=== PATIENT | male | born 1985 | race Hispanic/Latino ===

== ENCOUNTER 2021-12-02 18:21 | Emergency (ER) | payer SELFPAY ==
[2021-12-02] MEDS ORDERED: KETOROLAC 30 MG/ML INJ ONE (18:58)
[2021-12-02] MEDS ORDERED: HYDROCODONE/APAP 10/325 TAB ONE (18:58)
--- NOTE | 2021-12-02 19:18 | ER ---
Nurse's Notes [facility] Name: Jose De Jesus Hudson Age: 36 yrs Sex: Male : 1985 Arrival Date: 12/02/2021 Time: 18:23 Bed 14 Private MD: Diagnosis: Recurrent dislocation, left shoulder-reduced Presentation: 12/02 18:39 Chief complaint: Patient states: "I was lifting and popped my shoulder out of place.". ab2 Coronavirus screen: Vaccine status: Patient reports receiving the 2nd dose of the covid vaccine. Client denies travel out of the [place] in the last 14 days. At this time, the client does not indicate any symptoms associated with coronavirus-19. Ebola Screen: Patient negative for fever greater than or equal to 101.5 degrees Fahrenheit, and additional compatible Ebola Virus Disease symptoms Patient denies exposure to infectious person. Patient denies travel to an Ebola-affected area in the 21 days before illness onset. No symptoms or risks identified at this time. Initial Sepsis Screen: Does the patient meet any 2 criteria? No. Patient's initial sepsis screen is negative. Does the patient have a suspected source of infection? No. Patient's initial sepsis screen is negative. Risk Assessment: Do you want to hurt yourself or someone else? Patient reports no desire to harm self or others. Onset of symptoms is unknown. 18:39 Method Of Arrival: Ambulatory ab2 18:39 Acuity: ESTRELLA 4 ab2 Triage Assessment: 18:41 General: Appears in no apparent distress. uncomfortable, Behavior is calm, cooperative, ab2 appropriate for age. Pain: Complains of pain in left arm Pain currently is 10 out of 10 on a pain scale. Neuro: Level of Consciousness is awake, alert, obeys commands, Oriented to person, place, time, situation, Appropriate for age. Musculoskeletal: Pt shoulder out of place Reports pain in left arm. Historical: - Allergies: 18:40 No Known Allergies; ab2 - PMHx: 18:40 None; ab2 - PSHx: 18:40 None; ab2 - Immunization history:: Adult Immunizations up to date. - Social history:: Smoking status: Patient reports the use of cigarette tobacco products, smokes one pack cigarettes per day. - Family history:: not pertinent. Screenin:33 Abuse screen: Denies threats or abuse. Denies injuries from another. Nutritional kisha screening: No deficits noted. Tuberculosis screening: No symptoms or risk factors identified. Fall Risk None identified. Assessment: 19:31 Reassessment: Patient appears in no apparent distress at this time. No changes from kisha previously documented assessment. The pt's left shoulder has been reduced and we were awaiting x-ray report. The results were negative and the immobilizer was placed. The pt tolerated this well and denies any pain at this time. Vital Signs: 18:39 BP 122 / 97; Pulse 78; Resp 17; Temp 98.3; Pulse Ox 100% on R/A; Weight 72.57 kg; ab2 Height 5 ft. 4 in. (162.56 cm); Pain 10/10; 19:32 BP 128 / 95; Pulse 78; Resp 16; Pulse Ox 100% on R/A; Pain 0/10; kisha 18:39 Body Mass Index 27.46 (72.57 kg, 162.56 cm) ab2 ED Course: 18:23 Patient arrived in ED. mr 18:30 León Sandoval MD is Attending Physician. willie 18:40 Triage completed. ab2 18:41 Arm band placed on right wrist. ab2 18:54 Shoulder Left (2 View) XRAY In Process Unspecified. EDMS 19:17 Turner Willis MD is Referral Physician. willie 19:30 Reshma Gaitan, PABLO is Primary Nurse. kisha 19:33 No provider procedures requiring assistance completed. kisha 19:34 Patient has correct armband on for positive identification. Bed in low position. Call kisha light in reach. Adult w/ patient. 19:34 Patient did not have IV access during this emergency room visit. kisha Administered Medications: 19:00 Drug: [place] (HYDROcodone-acetaminophen) 10 mg-325 mg 1 tabs Route: PO; ww 19:00 Drug: Ketorolac 60 mg Route: IM; Site: right gluteus; ww Outcome: 19:17 Discharge ordered by . willie 19:34 Condition: stable kisha 19:34 Discharge instructions given to patient, Instructed on discharge instructions, follow kisha up and referral plans. medication usage, Demonstrated understanding of instructions, follow-up care, medications, Prescriptions given X 2. 19:34 Discharged to home ambulatory. kisha 19:36 Patient left the ED. kisha Signatures: Dispatcher [employer] León Webb MD MD cha Rivera [facility] mr Reshma Gaitan, RN Adriana Soto RN RN Darnell Sánchez
--- NOTE | 2021-12-02 19:18 | EDPHYS ---
Physician Documentation [facility] Name: Jose De Jesus Hudson Age: 36 yrs Sex: Male : 1985 Arrival Date: 12/02/2021 Time: 18:23 Bed 14 Private MD: GEOFF Physician León Sandoval HPI: 12/02 19:09 This 36 yrs old Male presents to ER via Ambulatory with complaints of Shoulder willie Dislocated. 19:09 The patient or guardian complains of decreased range of motion, pain. left shoulder. willie Context: The problem was sustained at home, resulted from lifting or carrying, The patient experiences decreased range of motion, The patient notes a deformity. Onset: The symptoms/episode began/occurred today. Modifying factors: the symptoms are alleviated by remaining still, shoulder immobilizer. Associated signs and symptoms: The patient has no apparent associated signs or symptoms. Severity of symptoms: At their worst the symptoms were moderate, in the emergency department the symptoms are unchanged. The patient has experienced similar episodes in the past, a few times. Historical: - Allergies: 18:40 No Known Allergies; ab2 - PMHx: 18:40 None; ab2 - PSHx: 18:40 None; ab2 - Immunization history:: Adult Immunizations up to date. - Social history:: Smoking status: Patient reports the use of cigarette tobacco products, smokes one pack cigarettes per day. - Family history:: not pertinent. ROS: 19:09 Constitutional: Negative for fever, chills, and weight loss, Eyes: Negative for injury, willie pain, redness, and discharge, ENT: Negative for injury, pain, and discharge, Neck: Negative for injury, pain, and swelling, Cardiovascular: Negative for chest pain, palpitations, and edema, Respiratory: Negative for shortness of breath, cough, wheezing, and pleuritic chest pain, Abdomen/GI: Negative for abdominal pain, nausea, vomiting, diarrhea, and constipation, Back: Negative for injury and pain, : Negative for injury, bleeding, discharge, and swelling, Skin: Negative for injury, rash, and discoloration, Neuro: Negative for headache, weakness, numbness, tingling, and seizure, Psych: Negative for depression, anxiety, suicide ideation, homicidal ideation, and hallucinations, Allergy/Immunology: Negative for hives, rash, and allergies, Endocrine: Negative for neck swelling, polydipsia, polyuria, polyphagia, and marked weight changes, Hematologic/Lymphatic: Negative for swollen nodes, abnormal bleeding, and unusual bruising. 19:09 MS/extremity: Positive for decreased range of motion, pain, swelling, tenderness, of the anterior aspect of left shoulder and posterior aspect of left shoulder. Exam: 19:09 Constitutional: This is a well developed, well nourished patient who is awake, alert, willie and in no acute distress. Head/Face: Normocephalic, atraumatic. Eyes: Pupils equal round and reactive to light, extra-ocular motions intact. Lids and lashes normal. Conjunctiva and sclera are non-icteric and not injected. Cornea within normal limits. Periorbital areas with no swelling, redness, or edema. ENT: Nares patent. No nasal discharge, no septal abnormalities noted. Tympanic membranes are normal and external auditory canals are clear. Oropharynx with no redness, swelling, or masses, exudates, or evidence of obstruction, uvula midline. Mucous membranes moist. Neck: Trachea midline, no thyromegaly or masses palpated, and no cervical lymphadenopathy. Supple, full range of motion without nuchal rigidity, or vertebral point tenderness. No Meningismus. Chest/axilla: Normal chest wall appearance and motion. Nontender with no deformity. No lesions are appreciated. Cardiovascular: Regular rate and rhythm with a normal S1 and S2. No gallops, murmurs, or rubs. Normal PMI, no JVD. No pulse deficits. Respiratory: Lungs have equal breath sounds bilaterally, clear to auscultation and percussion. No rales, rhonchi or wheezes noted. No increased work of breathing, no retractions or nasal flaring. Abdomen/GI: Soft, non-tender, with normal bowel sounds. No distension or tympany. No guarding or rebound. No evidence of tenderness throughout. Back: No spinal tenderness. No costovertebral tenderness. Full range of motion. Male : Normal genitalia with no discharge or lesions. Skin: Warm, dry with normal turgor. Normal color with no rashes, no lesions, and no evidence of cellulitis. Neuro: Awake and alert, GCS 15, oriented to person, place, time, and situation. Cranial nerves II-XII grossly intact. Motor strength 5/5 in all extremities. Sensory grossly intact. Cerebellar exam normal. Normal gait. Psych: Awake, alert, with orientation to person, place and time. Behavior, mood, and affect are within normal limits. 19:09 Musculoskeletal/extremity: ROM: limited active range of motion, limited passive range of motion, Circulation is intact in all extremities. Sensation intact. Compartment Syndrome exam of affected extremity: is normal. Joints: All joints are normal except the left shoulder displays deformity, dislocation, DVT Exam: no swelling, negative Homans' sign noted on exam, no appreciated bluish discoloration, no erythema, no increased warmth, pain, tenderness. Vital Signs: 18:39 BP 122 / 97; Pulse 78; Resp 17; Temp 98.3; Pulse Ox 100% on R/A; Weight 72.57 kg; ab2 Height 5 ft. 4 in. (162.56 cm); Pain 10/10; 19:32 BP 128 / 95; Pulse 78; Resp 16; Pulse Ox 100% on R/A; Pain 0/10; kisha 18:39 Body Mass Index 27.46 (72.57 kg, 162.56 cm) ab2 Procedures: 19:16 Reduction: of the left shoulder, using traction, manipulation, Immobilized with [facility] shoulder immobilizer. Patient tolerated well. Post reduction film - reveals normal alignment. MDM: 18:30 Patient medically screened. willie 19:13 Differential diagnosis: Anterior dislocation without fracture, Posterior dislocation willie without fracture, glenoid fracture, DJD, tendonitis. Data reviewed: vital signs, nurses notes, radiologic studies, plain films. Data interpreted: school lunch monitor: not applicable for this patient encounter. rate is 78 beats/min, rhythm is regular, Pulse oximetry: on room air is 100 %. Test interpretation: by ED physician or midlevel provider: plain radiologic studies. Counseling: I had a detailed discussion with the patient and/or guardian regarding: the historical points, exam findings, and any diagnostic results supporting the discharge/admit diagnosis, lab results, radiology results, the need for outpatient follow up, for definitive care, a orthopedic surgeon. 12/02 18:37 Order name: Shoulder Left (2 View) XRAY [facility] 12/02 18:37 Order name: Shoulder Immobilizer; Complete Time: 19:33 willie Administered Medications: 19:00 Drug: [place] (HYDROcodone-acetaminophen) 10 mg-325 mg 1 tabs Route: PO; ww 19:00 Drug: Ketorolac 60 mg Route: IM; Site: right gluteus; ww Disposition Summary: 12/02/21 19:17 Discharge Ordered Location: Home willie Problem: new willie Symptoms: have improved willie Condition: Stable willie Diagnosis - Recurrent dislocation, left shoulder - reduced willie Followup: willie - With: Private Physician - When: 2 - 3 days - Reason: Recheck today's complaints, Continuance of care, Re-evaluation by your physician Followup: willie - With: Turner Willis MD - When: 2 - 3 days - Reason: Recheck today's complaints, Re-evaluation by your physician Discharge Instructions: - Discharge Summary Sheet willie - Shoulder Dislocation willie - Shoulder Dislocation, [id number] willie - Recurrent Shoulder Laxity and Instability willie - Traumatic Shoulder Instability [facility]hab[facility] willie Forms: - Medication Reconciliation Form willie - Thank You Letter willie - Antibiotic Education willie - Prescription Opioid Use [facility] Prescriptions: - Motrin IB 200 mg Oral Tablet - take 3 tablet by ORAL route every 6 hours As needed as needed with food; 45 willie tablet; Refills: 0, Product Selection Permitted - Tylenol-Codeine #3 300 mg-30 mg Oral - take 2 tablet by ORAL route every 6 hours; 24 tablet; Refills: 0, Product willie Selection Permitted Signatures: Dispatcher [employer] León Webb MD MD cha Wood, Whitney RN RN Darnell Sánchez
--- NOTE | 2021-12-02 19:42 | RAD REPORT ---
EXAM DESCRIPTION: RAD - Shoulder Left 2 View - 12/02/2021 6:52 pm CLINICAL HISTORY: PAIN COMPARISON: <Comparisons> TECHNIQUE: Internal and external rotation views of the left shoulder were obtained labeled post redu ction. FINDINGS: Humeral head appears normally positioned in the glenoid. No AC joint separation. No Bankar t lesion identifiable. Hill-Sachs deformity is seen in the humeral head. IMPRESSION: Two images obtained labeled post reduction show humeral head to be normally positioned.
[2021-12-03 00:40] VITALS: TEMP 98.3; O2SAT 100
[2021-12-03 00:42] VITALS: BP 128/95
== END 2021-12-02 19:36 | disposition home or self-care (01) ==
LOC: ER 18:21
PROC: 0RSKXZZ Reposition Left Shoulder Joint, External Approach (ICD-10-PCS; principal; 2021-12-02)
DX: M24.412 Recurrent dislocation, left shoulder (principal); F17.210 Nicotine dependence, cigarettes, uncomplicated
CPT/HCPCS: 96372; 99283